=== PATIENT | female | born 1940 | race Two or more races ===

== ENCOUNTER 2019-05-08 23:11 | Inpatient (IN) | payer MEDICARE ==
[~2019-05-08] VITALS: Ht 152.4 cm; Wt 33.6 kg
--- NOTE | 2019-05-08 23:18 | NUR ---
"BIB PRIVATE AMBULANCE FOR ,EDICAL CLEARANCE FOR GEROPSYCH ADMISSION" PT ALERT, AWAKE, PT ABLE TO MAKE NEEDS KNOWN, PT ENDORSES S/I, WANTS TO , PT IS ON 5150 HOLD DIPPER CLOCK AND WATCH HANDS, PT ON MONITOR, VSS, NAD NOTED, PENDING MD BAEZA
--- NOTE | 2019-05-08 23:30 | NUR ---
PT URINE COLLECTED AND SENT TO LAB
[2019-05-08 23:48] LABS: BASOPHILS % (AUTO) 0.3 % (0.0-2.0); EOSINOPHILS % (AUTO) 0.1 % (0.0-6.0); HEMATOCRIT 44 % (33-45); HEMOGLOBIN 15.4 g/dL (11.5-14.8); LYMPHOCYTES # (AUTO) 0.9 /CMM (0.8-4.8); LYMPHOCYTES % (AUTO) 12.2 % (20.0-44.0); MEAN CORPUSCULAR HGB CONC 35 g/dl (31.0-36.0); MEAN CORPUSCULAR VOLUME 90 fL (82-100); MONOCYTES # (AUTO) 0.5 /CMM (0.1-1.30); MONOCYTES % (AUTO) 6.7 % (2.0-12.0); NEUTROPHILS # (AUTO) 6.1 /CMM (1.8-8.9); NEUTROPHILS % (AUTO) 80.7 % (43.0-81.0); PLATELET COUNT (AUTO) 331 /CMM (150-450); RED BLOOD CELL COUNT(AUTO) 4.85 MIL/uL (4.0-5.2); WHITE BLOOD COUNT (AUTO) 7.5 K/uL (4.3-11.0)
[2019-05-09 00:04] LABS: ALANINE AMINOTRANSFERASE 19 U/L (12-78); ALBUMIN 3.5 g/dL (3.4-5.0); ALCOHOL, BLOOD < 3 mg/dL (0-0); ALKALINE PHOSPHATASE 48 U/L (46-116); ASPARTATE AMINOTRANSFERASE 28 U/L (15-37); BILIRUBIN,DIRECT 0.3 mg/dL (0.0-0.2); BILIRUBIN,TOTAL 1.3 mg/dL (0.2-1.0); CARBON DIOXIDE 31 mmol/L (21-32); CHLORIDE 96 mmol/L (98-107); CREATININE 0.7 mg/dL (0.6-1.3); GLUCOSE 140 mg/dL (74-106); SALICYLATE 0.4 mg/dL (2.8-20.0); SODIUM SERUM 140 mmol/L (136-145); TOTAL PROTEIN, SERUM 6.7 g/dL (6.4-8.2); UREA NITROGEN, BLOOD 17 mg/dL (7-18)
[2019-05-09 00:05] LABS: ACETAMINOPHEN 0 ug/ml (10-30); POTASSIUM 2.4 mmol/L (3.5-5.1)
[2019-05-09 00:06] LABS: APPEARANCE,URINE Clear (CLEAR); BILIRUBIN,URINE SMALL (NEGATIVE); BLOOD, URINE Trace-intact Ery/uL (NEGATIVE); COLOR,URINE Yellow (YELLOW); KETONES,URINE 40 (NEGATIVE); LEUKOCYTE ESTERASE ,URINE Small (NEGATIVE); NITRITE, URINE Negative (NEGATIVE); PROTEIN,URINE 30 mg/dl (NEGATIVE); UGLUCOSE Negative (NEGATIVE)
[2019-05-09] MEDS ORDERED: FAMO20TA8 PO (00:21)
[2019-05-09] MEDS ORDERED: LOSA50TA39 PO (00:21)
[2019-05-09] MEDS ORDERED: ATEN100T PO (00:21)
[2019-05-09] MEDS ORDERED: SIMV40TA5 PO (00:21)
[2019-05-09] MEDS ORDERED: METH5TAB6 PO (00:21)
[2019-05-09 00:25] LABS: BACTERIA,URINE None seen /HPF (None Seen); RBC,URINE 0-2 /HPF (0-2); SQUAMOUS EPITHELIAL CELL,UR Few /HPF (None Seen)
--- NOTE | 2019-05-09 00:26 | NUR ---
REPORT GIVEN TO MIGUEL NURSE AT GPS, PT WILL BE TRANSPORTED ONCE MEDICALLY CLEARED
[2019-05-09] MEDS ORDERED: POTASSIUM CL. PREMIX PERIPHER. 100 ML ONE ×4 (00:40→07:28)
--- NOTE | 2019-05-09 00:50 | NUR ---
1ST BAG OF POTASSIUM STARTED. R AC 20G END:0150
--- NOTE | 2019-05-09 01:51 | NUR ---
2ND BAG OF POTASSIUM STARTED. R AC 20G END:0250. TOLERATING WELL
--- NOTE | 2019-05-09 02:55 | NUR ---
3RD BAG OF POTASSIUM STARTED. TOLERATING WELL. END:0400
--- NOTE | 2019-05-09 04:00 | NUR ---
Amy wick in EDM - 05/09/19 at 0513 by RAVEN 3RD BAG OF POTASSIUM STARTED. VSS. R AC 20G END:0500. TOLERATING WELL
--- NOTE | 2019-05-09 04:00 | NUR ---
4TH BAG OF POTASSIUM STARTED. VSS. R AC 20G END:0500. TOLERATING WELL
--- NOTE | 2019-05-09 05:13 | NUR ---
5TH BAG OF POTASSIUM STARTED. TOLERATING WELL. VSS AT THIS TIME. -ACUTE DISTRESS. PT RESTING IN BED QUETLY. R AC 20G END:0620
--- NOTE | 2019-05-09 06:20 | NUR ---
6TH BAG OF POTASSIUM ADMINISTERED. R AC 20G END:0720. TOLERATING WELL. PATIENT GIVEN FOOD+DRINK.
[2019-05-09] MEDS: POTASSIUM CL. PREMIX PERIPHER. 50 ML IV SCH ×2 (07:10→08:10)
--- NOTE | 2019-05-09 07:10 | NUR ---
ASSUME PT CARE. RESTING IN BED. 7TH BAG POTASSIUM STARTED. SITTER AT BEDSIDE. WILL CONTINUE TO MONITOR.
--- NOTE | 2019-05-09 08:44 | NUR ---
REPRT TO [facility] NURSE ROCHA FOR JULITO.
--- NOTE | 2019-05-09 09:42 | NUR ---
k+ administered. iv line d/c'd. tranported to geropsych floor. in stable condition.
[2019-05-09] MEDS ORDERED: ACETAMINOPHEN 325 MG TABLET PO PRN (10:30)
[2019-05-09] MEDS ORDERED: MAG HYDROX/AL HYDROX/SIMETH 30 ML UDC PO PRN (10:30)
[2019-05-09] MEDS ORDERED: BLOOD SUGAR DIAGNOSTIC 1 EACH STRIP IN ONE (10:30)
[2019-05-09] MEDS ORDERED: MAGNESIUM HYDROXIDE 30 ML UDC PO PRN (10:30)
[2019-05-09 10:39] VITALS: BP 156/94
--- NOTE | 2019-05-09 11:30 | NUR ---
ADMITTED THIS 79 YEARS OLD FEMALE FROM ER, PATIENT WAS PLACED ON 5150 HOLD DUE TO UNABLE TO CARE FOR HER SELF, PATIENT IS UNDER CARE OF PSY DR. LONG. SKIN ASSESSMENT IS DONE . PER PT SHE HAS NO FAMILY. ON FACE TO FACE ASSESSMENT PATIENT REFUSED ANY SI/HI AT THIS TIME. KEEP PATIENT DRY AND CLEAN BED IS IN LOCK AND LOW POSITIONS CALL LIGHT WITHIN EASY REACH WILL CONTINUES TO MONITOR THE PATIENT EVERY 15 MINUTES FOR SAFETY AND FALL.
--- NOTE | 2019-05-09 15:25 | NUR ---
MANASA called the pts ex , Bill ([phone]), and he provided the SW with the pts home environment and how she functions with her daily living. MANASA went over the pts treatment plan and discharge planning and he stated that he would be in contact and would like to be updated.
--- NOTE | 2019-05-09 15:27 | NUR ---
Initial Discharge Plan: Pt currently resides at her home alone located at [address] [place] [address]; ([phone]). Per pt, she would like to return to her home. SW will work with the pt and the MD regarding appropriate discharge planning. SW will form a safe and proper discharge.
[2019-05-09 16:00] VITALS: BP 132/86
--- NOTE | 2019-05-09 16:10 | NUR ---
Group Note 05/09/19: SW invited patient to attend today's support group at 2 pm in the activities room, regarding mindfulness. Patient was already in the activities room pacing but stated, "I don't want to do group". SW encouraged patient to attend, patient attempted to hug SW. SW moved out of range and explained boundaries. Patient smiled and walked away. Pt. did not participate in group.
[2019-05-09] MEDS: LOSARTAN POTASSIUM 50 MG TABLET PO SCH (16:18)
[2019-05-09] MEDS: FAMOTIDINE (20 MG) 20 MG TABLET PO SCH (16:21)
[2019-05-09 20:42] VITALS: BP 128/91
[2019-05-09] MEDS: SIMVASTATIN 20 MG TABLET PO SCH (21:18)
[2019-05-09] MEDS: TEMAZEPAM 7.5 MG CAPSULE PO PRN (21:18)
[2019-05-09] MEDS: MIRTAZAPINE 15 MG TABLET PO SCH (21:18)
--- NOTE | 2019-05-09 21:19 | NUR ---
[facility]PS RN NOTE ADMINISTERED PRN RESTORIL 7.5 MG FOR SLEEP PER PATIENTS REQUEST BECAUSE THE PATIENT WAS STATING SHES RESTLESS. WILL CONTINUE TO MONITOR.
[2019-05-09] MEDS ORDERED: SIMVASTATIN 40 MG TABLET PO SCH (22:00)
[2019-05-10 07:29] LABS: ALBUMIN 3.1 g/dL (3.4-5.0); BILIRUBIN,TOTAL 0.7 mg/dL (0.2-1.0); CALCIUM, SERUM 8.8 mg/dL (8.5-10.1); CREATININE 0.6 mg/dL (0.6-1.3)
[2019-05-10 07:43] LABS: THYROID STIMULATING HORMONE 0.222 uIU/mL (0.358-3.74)
[2019-05-10 08:00] VITALS: BP 90/50
[2019-05-10] MEDS: LOSARTAN POTASSIUM 50 MG TABLET PO SCH ×2 (08:17→16:07)
[2019-05-10] MEDS: FAMOTIDINE (20 MG) 20 MG TABLET PO SCH ×2 (08:17→16:08)
[2019-05-10] MEDS: ATENOLOL 50 MG TABLET PO SCH (08:17)
[2019-05-10] MEDS: POTASSIUM CHLORIDE 20 MEQ TAB.PRT.SR PO SCH ×3 (09:10→10:51)
[2019-05-10] MEDS: METHIMAZOLE (5MG) 5 MG TABLET PO SCH (09:10)
[2019-05-10] MEDS: SERTRALINE HCL 25 MG TABLET PO SCH (12:29)
[2019-05-10] MEDS: ENSURE ENLIVE 237 ML LIQUID (VANILLA) PO SCH ×2 (12:29→16:07)
--- NOTE | 2019-05-10 15:31 | NUR ---
GROUP NOTE: SW encouraged pt to attend group on this present day to discuss "impaired reality-testing." Pt refused stating, "I don;t want to attend I just want to stay in bed, I want to rest." SW attempted to provide intervention but pt was not cooperative.
[2019-05-10 16:00] VITALS: BP 129/63
--- NOTE | 2019-05-10 19:27 | NUR ---
CALM AND QUIET, COMFORTABLE, NO APPARENT DISTRESS NOTED.
[2019-05-10 19:57] VITALS: BP 120/65
[2019-05-10] MEDS: MIRTAZAPINE 15 MG TABLET PO SCH (21:08)
[2019-05-10] MEDS: SIMVASTATIN 20 MG TABLET PO SCH (21:09)
[2019-05-10] MEDS: TEMAZEPAM 7.5 MG CAPSULE PO PRN (21:10)
--- NOTE | 2019-05-11 07:30 | NUR ---
INITIAL PT IN BED CALM AND QUIET, COMFORTABLE, NO APPARENT DISTRESS NOTED. COOPERATIVE WILL CONTINUE TO MONITOR
[2019-05-11 08:00] VITALS: BP 154/99
[2019-05-11] MEDS: FAMOTIDINE (20 MG) 20 MG TABLET PO SCH ×2 (08:35→17:03)
[2019-05-11] MEDS: ENSURE ENLIVE 237 ML LIQUID (VANILLA) PO SCH ×3 (08:36→17:04)
[2019-05-11] MEDS: ATENOLOL 50 MG TABLET PO SCH (08:36)
[2019-05-11] MEDS: METHIMAZOLE (5MG) 5 MG TABLET PO SCH (08:36)
[2019-05-11] MEDS: LOSARTAN POTASSIUM 50 MG TABLET PO SCH ×2 (08:45→17:03)
[2019-05-11 08:54] LABS: CALCIUM, SERUM 8.9 mg/dL (8.5-10.1); CREATININE 0.7 mg/dL (0.6-1.3); POTASSIUM 3.9 mmol/L (3.5-5.1)
[2019-05-11] MEDS: SERTRALINE HCL 25 MG TABLET PO SCH (12:57)
[2019-05-11 16:00] VITALS: BP 124/69
--- NOTE | 2019-05-11 18:03 | NUR ---
CLOSING PT COOPERATIVE AND CALM ALL DAY TAKING ALL MEDICATIONS AFTER COMPLAINS ABOUT WHY DOES SHE HAVE TO TAKE MEDICATIONS PT EXPLAINED PLAN OF CARE. PT KEPT SAFE STUART REPORT TO PM SHIFT RN FOR CONTINUITY OF CARE
--- NOTE | 2019-05-11 19:14 | NUR ---
UP TO TOILET WITH STANDBY ASSIST. A/O X1, CONFUSED. CALM, COOPERATIVE.AMBULATORY WITH STANDBY ASSIST, DENIES ANY PAIN OR DISCOMFORT, NO APPARENT DISTRESS NOTED. ENVIRONMENTAL SAFETY CHECK DONE. BED ALARM ON, BED LOCKED AND KEPT ON LOWEST POSITION. WILL CONTINUE TO MONITOR Q 15 MINS. TO MAINTAIN SAFETY.
[2019-05-11 19:55] VITALS: BP 98/65
[2019-05-11] MEDS: SIMVASTATIN 20 MG TABLET PO SCH (22:16)
[2019-05-11] MEDS: MIRTAZAPINE 15 MG TABLET PO SCH (22:16)
[2019-05-12 08:00] VITALS: BP 107/65
[2019-05-12] MEDS: ATENOLOL 50 MG TABLET PO SCH (08:08)
[2019-05-12] MEDS: LOSARTAN POTASSIUM 50 MG TABLET PO SCH ×2 (08:08→16:44)
[2019-05-12] MEDS: METHIMAZOLE (5MG) 5 MG TABLET PO SCH (08:09)
[2019-05-12] MEDS: ENSURE ENLIVE 237 ML LIQUID (VANILLA) PO SCH ×3 (08:09→17:00)
[2019-05-12] MEDS: FAMOTIDINE (20 MG) 20 MG TABLET PO SCH ×2 (08:15→16:44)
[2019-05-12] MEDS: SERTRALINE HCL 25 MG TABLET PO SCH (12:35)
[2019-05-12 16:01] VITALS: BP 148/90
[2019-05-12 19:53] VITALS: BP 102/66
[2019-05-12] MEDS: SIMVASTATIN 20 MG TABLET PO SCH (21:17)
[2019-05-12] MEDS: MIRTAZAPINE 15 MG TABLET PO SCH (21:18)
[2019-05-12] MEDS: LORAZEPAM 0.5 MG TABLET PO PRN (23:07)
--- NOTE | 2019-05-13 06:13 | NUR ---
RN NOTES: PT. REFUSED WEEKLY SKIN REASSESSMENT AND PICTURES , ENCOURAGED EXPLAINED RISKS AND BENEFITS STILL REFUSED, PER PT. MY SKIN IS FINE ,PT. BEHAVIOR VERY UNCOOPERATIVE , AGGRESSIVE.
[2019-05-13 08:00] VITALS: BP 158/76
[2019-05-13] MEDS: LOSARTAN POTASSIUM 50 MG TABLET PO SCH ×2 (08:21→16:48)
[2019-05-13] MEDS: ATENOLOL 50 MG TABLET PO SCH (08:21)
[2019-05-13] MEDS: FAMOTIDINE (20 MG) 20 MG TABLET PO SCH ×2 (08:21→16:48)
[2019-05-13] MEDS: METHIMAZOLE (5MG) 5 MG TABLET PO SCH (08:22)
[2019-05-13] MEDS: ENSURE ENLIVE 237 ML LIQUID (VANILLA) PO SCH ×3 (08:22→17:38)
[2019-05-13] MEDS: LORAZEPAM 0.5 MG TABLET PO PRN ×2 (08:27→16:48)
--- NOTE | 2019-05-13 08:32 | NUR ---
RN NOTE: PATIENT IS VERY ANXIOUS. PRN ATIVAN GIVEN.
[2019-05-13] MEDS: SERTRALINE HCL 25 MG TABLET PO SCH (12:09)
[2019-05-13 16:00] VITALS: BP 115/52
--- NOTE | 2019-05-13 16:27 | NUR ---
SNF Referral: MANASA faxed a referral to [facility] to the fax number: [phone].
--- NOTE | 2019-05-13 16:27 | NUR ---
Intervention with the pts APS MANASA: APS MANASA, Marilin Schofield ([phone]), met with the SW and stated that she believes that the SW and the pts MD should consider conservatorship for the pt due to her current mental state and inability to make decisions regarding herself. SW stated that she would mention this to the pts MD but the plan at the moment is to discharge the pt to a SNF.
--- NOTE | 2019-05-13 16:57 | NUR ---
RN NOTE: PATIENT IS VERY ANXIOUS. PRN ATIVAN GIVEN.
[2019-05-13 20:30] VITALS: BP 116/69
[2019-05-13] MEDS: SIMVASTATIN 20 MG TABLET PO SCH (21:09)
[2019-05-13] MEDS: MIRTAZAPINE 15 MG TABLET PO SCH (21:10)
[2019-05-14] MEDS: LOSARTAN POTASSIUM 50 MG TABLET PO SCH ×2 (07:59→17:00)
[2019-05-14 08:00] VITALS: BP 139/53
[2019-05-14] MEDS: FAMOTIDINE (20 MG) 20 MG TABLET PO SCH ×2 (08:00→17:13)
[2019-05-14] MEDS: ENSURE ENLIVE 237 ML LIQUID (VANILLA) PO SCH ×3 (08:00→17:08)
[2019-05-14] MEDS: ATENOLOL 50 MG TABLET PO SCH (08:01)
[2019-05-14] MEDS: METHIMAZOLE (5MG) 5 MG TABLET PO SCH (08:01)
[2019-05-14] MEDS: SERTRALINE HCL 25 MG TABLET PO SCH ×2 (13:20→18:39)
--- NOTE | 2019-05-14 13:40 | NUR ---
Bill ([phone]), pts ex , called the SW and stated that he would like an update regarding the pts discharge planning. SW stated that the MD believes that a SNF would be an appropriate discharge location and that we are currently in the process of sending out referrals. He stated that he is out of town and cannot assist in any matters physically but provided the SW with a contact for a friend of the pts by the name of Kayla.
[2019-05-14 16:00] VITALS: BP 106/64
--- NOTE | 2019-05-14 16:08 | NUR ---
Group Note: SW encouraged pt to participate in group on 05/14/19 at 2pm discussing "discharge planning." Pt is unable to participate due to cognitive impairment. Pt is confused and only alert to her name and unable to engage in conversation.
[2019-05-14 20:22] VITALS: BP 110/60
[2019-05-14] MEDS: MIRTAZAPINE 15 MG TABLET PO SCH ×2 (21:29→21:42)
[2019-05-14] MEDS: SIMVASTATIN 20 MG TABLET PO SCH (21:29)
[2019-05-15 08:00] VITALS: BP 149/83
[2019-05-15] MEDS: FAMOTIDINE (20 MG) 20 MG TABLET PO SCH ×2 (08:15→16:47)
[2019-05-15] MEDS: ATENOLOL 50 MG TABLET PO SCH (08:15)
[2019-05-15] MEDS: LOSARTAN POTASSIUM 50 MG TABLET PO SCH ×2 (08:16→16:39)
[2019-05-15] MEDS: ENSURE ENLIVE 237 ML LIQUID (VANILLA) PO SCH ×3 (08:16→16:47)
[2019-05-15] MEDS: METHIMAZOLE (5MG) 5 MG TABLET PO SCH (08:18)
--- NOTE | 2019-05-15 08:50 | NUR ---
PC Hearing Notification: MANASA called the pts ex , Bill ([phone]), and explained what a Probable Cause hearing entails. SW presented all of the possible outcomes of the hearing and informed him that she will keep him updated.
--- NOTE | 2019-05-15 09:28 | NUR ---
SNF Referral: MANASA faxed a referral to [facility] with attention to Claudia to the fax number: [phone].
[2019-05-15] MEDS: SERTRALINE HCL 25 MG TABLET PO SCH ×2 (12:58→16:47)
--- NOTE | 2019-05-15 15:49 | NUR ---
GROUP NOTE: SW encouraged pt to participate in group on this present day discussing "discharge planning." Pt is unable to participate due to cognitive impairment. Pt is confused and only alert to her name and unable to engage in conversation.
[2019-05-15 16:00] VITALS: BP 105/68
[2019-05-15 20:44] VITALS: BP 134/83
[2019-05-15] MEDS: SIMVASTATIN 20 MG TABLET PO SCH (21:23)
[2019-05-15] MEDS: MIRTAZAPINE 15 MG TABLET PO SCH (21:23)
[2019-05-16 08:00] VITALS: BP 158/76
[2019-05-16] MEDS: ENSURE ENLIVE 237 ML LIQUID (VANILLA) PO SCH ×3 (08:36→16:19)
[2019-05-16] MEDS: LOSARTAN POTASSIUM 50 MG TABLET PO SCH ×2 (08:36→16:19)
[2019-05-16] MEDS: METHIMAZOLE (5MG) 5 MG TABLET PO SCH (08:36)
[2019-05-16] MEDS: ATENOLOL 50 MG TABLET PO SCH (08:36)
[2019-05-16] MEDS: FAMOTIDINE (20 MG) 20 MG TABLET PO SCH ×2 (08:36→16:19)
[2019-05-16] MEDS: SERTRALINE HCL 25 MG TABLET PO SCH ×2 (12:09→16:19)
--- NOTE | 2019-05-16 14:15 | NUR ---
Claudia ([phone]) from [facility] called the SW and stated that the pt was accepted.
[2019-05-16 16:00] VITALS: BP 138/73
--- NOTE | 2019-05-16 20:12 | NUR ---
UP TO STATION C/O TOOTHACHE REQUESTING FOR PAIN MEDS, TYLENOL 650 MG TAB PO GIVEN.
[2019-05-16 20:23] VITALS: BP 157/109
[2019-05-16] MEDS: MIRTAZAPINE 15 MG TABLET PO SCH (21:14)
[2019-05-16] MEDS: risperiDONE 0.25 MG TABLET PO SCH (21:14)
[2019-05-16] MEDS: SIMVASTATIN 20 MG TABLET PO SCH (21:14)
[2019-05-17] MEDS: ATENOLOL 50 MG TABLET PO SCH (06:17)
--- NOTE | 2019-05-17 06:18 | NUR ---
LATEST BP NOW @ 0617 = 160/96, PULSE 108, EARLY DOSE 0F ATENOLOL DUE FOR 0900, 100 MG PO GIVEN.
--- NOTE | 2019-05-17 06:22 | NUR ---
REFUSED SLEEPING PILL LAST NIGHT, OFFERED X2, AND REFUSED.
[2019-05-17 08:00] VITALS: BP 148/90
[2019-05-17] MEDS: LOSARTAN POTASSIUM 50 MG TABLET PO SCH ×2 (08:43→16:42)
[2019-05-17] MEDS: FAMOTIDINE (20 MG) 20 MG TABLET PO SCH ×2 (08:46→16:43)
[2019-05-17] MEDS: METHIMAZOLE (5MG) 5 MG TABLET PO SCH (08:46)
[2019-05-17] MEDS: ENSURE ENLIVE 237 ML LIQUID (VANILLA) PO SCH ×3 (09:00→16:43)
--- NOTE | 2019-05-17 12:35 | NUR ---
MANASA called the pts ex , Bill ([phone]), and informed him that the pt will be discharged early next week and that she will be transferred to [facility] short term. He stated that she will go home after that and that he will get a caregiver for her.
[2019-05-17] MEDS: SERTRALINE HCL 25 MG TABLET PO SCH ×2 (13:01→16:43)
[2019-05-17 16:10] VITALS: BP 122/76
--- NOTE | 2019-05-17 19:44 | NUR ---
UP AMBULATING INSIDE HER ROOM, INITIATED INTERACTION, SHOWS NO S/S OF ANY PAIN, NO APPARENT DISTRESS NOTED. KEPT ON FALL PRECAUTION, BED ALARM ON AND PLACED ON LOWEST POSITION. ENVIRONMENTAL SAFETY CHECK DONE. WILL CONTINUE TO MONITOR Q 15 MINS. FOR SAFETY AND BEHAVIOR.
[2019-05-17 20:25] VITALS: BP 113/55
[2019-05-17] MEDS: risperiDONE 0.25 MG TABLET PO SCH (22:33)
[2019-05-17] MEDS: MIRTAZAPINE 15 MG TABLET PO SCH (22:33)
[2019-05-17] MEDS: SIMVASTATIN 20 MG TABLET PO SCH (22:33)
[2019-05-18 08:00] VITALS: BP 144/80
[2019-05-18] MEDS: FAMOTIDINE (20 MG) 20 MG TABLET PO SCH ×2 (08:44→17:02)
[2019-05-18] MEDS: LOSARTAN POTASSIUM 50 MG TABLET PO SCH ×2 (08:45→17:03)
[2019-05-18] MEDS: ATENOLOL 50 MG TABLET PO SCH (08:45)
[2019-05-18] MEDS: METHIMAZOLE (5MG) 5 MG TABLET PO SCH (08:46)
[2019-05-18] MEDS: ENSURE ENLIVE 237 ML LIQUID (VANILLA) PO SCH ×3 (08:46→17:01)
[2019-05-18] MEDS: SERTRALINE HCL 25 MG TABLET PO SCH ×2 (12:14→17:02)
[2019-05-18 16:00] VITALS: BP 117/69
[2019-05-18 20:09] VITALS: BP 113/57
--- NOTE | 2019-05-18 20:10 | NUR ---
VISITOR LEFT AT THIS TIME. AWAKE, ALERT, CONFUSED, AMBULATORY WITH STEADY GAIT, DENIES ANY PAIN, COMFORTABLE, COOPERATIVE, LABILE. NO APPARENT DISTRESS NOTED. BED LOCKED AND PLACED ON LOWEST POSITION TO PREVENT FALL, BED ALARM ON, INITIATES INTERACTION. ENVIRONMENTAL SAFETY CHECK DONE. WILL CONTINUE TO MONITOR Q 15 MINS. FOR SAFETY AND BEHAVIOR.
[2019-05-18] MEDS: risperiDONE 0.25 MG TABLET PO SCH (21:29)
[2019-05-18] MEDS: SIMVASTATIN 20 MG TABLET PO SCH (21:30)
[2019-05-18] MEDS: MIRTAZAPINE 15 MG TABLET PO SCH (21:30)
[2019-05-19 08:00] VITALS: BP 168/77
[2019-05-19] MEDS: ATENOLOL 50 MG TABLET PO SCH (08:09)
[2019-05-19] MEDS: METHIMAZOLE (5MG) 5 MG TABLET PO SCH (08:10)
[2019-05-19] MEDS: FAMOTIDINE (20 MG) 20 MG TABLET PO SCH ×2 (08:10→16:51)
[2019-05-19] MEDS: ENSURE ENLIVE 237 ML LIQUID (VANILLA) PO SCH ×3 (08:10→17:00)
[2019-05-19] MEDS: LOSARTAN POTASSIUM 50 MG TABLET PO SCH ×2 (08:10→16:52)
[2019-05-19] MEDS: SERTRALINE HCL 25 MG TABLET PO SCH ×2 (12:38→16:52)
[2019-05-19 16:00] VITALS: BP 128/60
--- NOTE | 2019-05-19 16:34 | NUR ---
GPS/RN PT NOTED TO BE ANXIOUS, ATIVAN PRN OFFERED BUT PT REFUSED . WILL CONTINUE TO MONITOR THE PT PER GPS PROTOCOL
--- NOTE | 2019-05-19 19:21 | NUR ---
AWAKE, ALERT, ORIENTED X3, AMBULATING/STEADY GAIT. DENIES ANY PAIN, COOPERATIVE, PLEASANTLY CONFUSED, CALM, MED COMPLIANT. TAKES WHOLE PILLS. ENVIRONMENTAL SAFETY CHECK DONE. BED LOCKED AND PLACED ON LOWEST POSITION. WILL CONTINUE TO MONITOR Q 15 FOR SAFETY AND BEHAVIOR.
[2019-05-19 20:37] VITALS: BP 150/76
[2019-05-19] MEDS: risperiDONE 0.25 MG TABLET PO SCH (22:24)
[2019-05-19] MEDS: MIRTAZAPINE 15 MG TABLET PO SCH (22:24)
[2019-05-19] MEDS: SIMVASTATIN 20 MG TABLET PO SCH (22:24)
[2019-05-20 08:00] VITALS: BP 128/74
[2019-05-20] MEDS: LOSARTAN POTASSIUM 50 MG TABLET PO SCH ×2 (09:15→16:59)
[2019-05-20] MEDS: FAMOTIDINE (20 MG) 20 MG TABLET PO SCH ×2 (09:15→16:57)
[2019-05-20] MEDS: ATENOLOL 50 MG TABLET PO SCH (09:15)
[2019-05-20] MEDS: METHIMAZOLE (5MG) 5 MG TABLET PO SCH (09:16)
[2019-05-20] MEDS: ENSURE ENLIVE 237 ML LIQUID (VANILLA) PO SCH ×3 (09:21→16:59)
[2019-05-20] MEDS: SERTRALINE HCL 25 MG TABLET PO SCH ×2 (12:45→16:57)
--- NOTE | 2019-05-20 15:21 | NUR ---
Kayla ([phone]), pts friend, called the SW and the SW informed her that the pt is going to be discharged tomorrow to [facility]. Addendum: 05/20/19 at 1535 by OCTAVIA GOEL Pts brother stated that he would prefer the time to be changed to 1:30PM.
--- NOTE | 2019-05-20 15:26 | NUR ---
MANASA contacted Claudia ([phone]) from [facility] and informed her that the pt will be discharged tomorrow.
--- NOTE | 2019-05-20 15:54 | NUR ---
GROUP NOTE: SW encouraged pt to participate in group therapy on this present day discussing "discharge planning." Pt is unable to participate in group therapy due to pts cognitive impairment and not beige able to engage in conversation.
[2019-05-20 16:50] VITALS: BP 100/57
[2019-05-20 21:25] VITALS: BP 126/59
[2019-05-20] MEDS: SIMVASTATIN 20 MG TABLET PO SCH (22:09)
[2019-05-20] MEDS: risperiDONE 0.25 MG TABLET PO SCH (22:09)
[2019-05-20] MEDS: MIRTAZAPINE 15 MG TABLET PO SCH (22:09)
[2019-05-20] MEDS: LORAZEPAM 0.5 MG TABLET PO PRN (23:41)
[2019-05-21 08:00] VITALS: BP 129/79
[2019-05-21] MEDS: FAMOTIDINE (20 MG) 20 MG TABLET PO SCH (08:37)
[2019-05-21] MEDS: LOSARTAN POTASSIUM 50 MG TABLET PO SCH (08:38)
[2019-05-21] MEDS: METHIMAZOLE (5MG) 5 MG TABLET PO SCH (08:38)
[2019-05-21] MEDS: ENSURE ENLIVE 237 ML LIQUID (VANILLA) PO SCH (09:16)
--- NOTE | 2019-05-21 10:00 | NUR ---
PT. COOPERATIVE,PREPARING FOR DISCHARGE.REFUSED DC PHOTO.UP AND ABOUT,WALKING BETWEEN RM. AND DINING RM.
[2019-05-21 10:15] VITALS: BP 110/64
[2019-05-21] MEDS: ATENOLOL 50 MG TABLET PO SCH (10:15)
--- NOTE | 2019-05-21 12:45 | NUR ---
BRIANA AT FACILITY CALLED WITH REPORT.ALL PAPERS MADE READY.PT. DENIES SUICIDAL IDEATION,HOMICIDAL IDEATION OR COMMAND HALLUCINATIONS.[employer] AND [employer] WELL TREATMENT OPERATOR HERE AND GIVEN REPORT.TRANSFERRED TO FACILITY VIA AMBULANCE.
[2019-05-21] MEDS ORDERED: SERTRALINE HCL 25 MG TABLET PO SCH (13:00)
--- NOTE | 2019-05-21 14:14 | NUR ---
MANASA called Kayla ([phone]), pts friend, and informed her that the pt was discharged from the hospital.
--- NOTE | 2019-05-21 14:16 | NUR ---
Discharge Plan: Pt was discharged to [facility] located at [address], [place] [address] ([phone]). Pt was transported via [facility] at 11am. Pt�s friend, Kayla ([phone]), was aware of the discharge. Upon discharge, the pt appeared to be in a euthymic mood and presented with a calm affect. Pt denied both suicidal and homicidal ideation as well as auditory and visual hallucinations. Pt will continue to be under the care of her psychiatrist, Dr. Landeros, located at [address] [address], [place] [address]; and her investigation officer, Dr. Jamison, located at [address], [place] [address]; .
== END 2019-05-21 12:45 | DRG 885 ==
LOC: ER 23:11 → GPS 05-09 00:05
PROVIDERS: ADMIT Psychiatry & Neurology Psychosomatic Medicine; ATTEND Internal Medicine
DX: F33.2 Major depressive disorder, recurrent severe without psychotic features (principal); F01.50 Vascular dementia, unspecified severity, without behavioral disturbance, psychotic disturbance, mood disturbance, and anxiety; Z68.1 Body mass index [BMI] 19.9 or less, adult; E44.0 Moderate protein-calorie malnutrition; F41.9 Anxiety disorder, unspecified; Z73.6 Limitation of activities due to disability; E78.5 Hyperlipidemia, unspecified; I10 Essential (primary) hypertension; F09 Unspecified mental disorder due to known physiological condition; R73.9 Hyperglycemia, unspecified; E05.90 Thyrotoxicosis, unspecified without thyrotoxic crisis or storm
CPT/HCPCS: 36415; 80048-TC; 80053-TC; 80061-TC; 80076-TC; 80305; 81000-TC; 82962-TC; 84132-TC; 84439-TC; 84443-TC; 85025-TC; 87081-TC; G0480; J3480